=== PATIENT | female | born 1995 | race Caucasian/White ===

== ENCOUNTER 2017-12-12 21:28 | Emergency (ER) | payer OTHER ==
[~2017-12-12] VITALS: Ht 162.6 cm; Wt 77.3 kg
[~2017-12-12 21:28] MED LIST: MOTRIN 800800 MG/TAB PO; NO HOME MEDICATIONS; PERCOCET 325 MG1 TA2 PO; PHENERGAN25 MG RC; TUMS500 MG PO; ZOFRAN ODT4 MG PO
[2017-12-12 21:34] VITALS: TEMP 97.4
[2017-12-12 22:35] LABS: BASO % 0.3 % (0.0-2.0); EOS % 0.1 % (0-4.0); GRAN # 12.1 (1.4-6.5); GRAN % 80.8 % (42.2-75.2); HEMOGLOBIN 12.3 g/dl (12.5-16.0); LYMPH # 1.8 (1.2-3.4); LYMPH % 11.9 % (20.0-51.0); MEAN CELL VOLUME 82 fl (80.0-100.0); MEAN CORPUSCULAR HEMOGLOBIN 28 pg (27.0-31.0); MEAN CORPUSCULAR HGB CONC 35 g/dl (33.0-37.0); MEAN PLATELET VOLUME 10.5 fl (7.4-10.4); MONO % 6.4 % (1.7-9.3); PLATELET COUNT 264 K/mm3 (130-400); RED BLOOD COUNT 4.33 M/mm3 (4.10-5.30); REDCELL DISTRIBUTION WIDTH-CV 13.8 % (11.5-14.5)
[2017-12-12 22:36] LABS: HEMATOCRIT 35.4 % (37.0-47.0)
[2017-12-12 22:47] LABS: ALBUMIN 3.4 gm/dL (3.5-5.0); BILIRUBIN,TOTAL 0.3 mg/dL (0.0-1.0); CREATININE, serum 0.52 mg/dL (0.52-1.25); POTASSIUM 3.1 mmol/L (3.4-5.0); TOTAL PROTEIN 6.8 gm/dL (6.4-8.2)
[2017-12-12 22:49] LABS: COLLECTION METHOD CLEAN CATCH
[2017-12-12 22:51] LABS: C-REACTIVE PROTEIN 2.5 mg/dL (0.0-0.9)
[2017-12-12 23:07] LABS: PH 6 (5-8); URINE APPEARANCE Hazy; URINE BACTERIA Rare /hpf; URINE BILIRUBIN Negative (NEGATIVE); URINE BLOOD 1+ (NEGATIVE); URINE COLOR Yellow; URINE GLUCOSE Negative (NEGATIVE); URINE KETONE Trace (NEGATIVE); URINE LEUKOCYTE ESTERASE 3+ (NEGATIVE); URINE NITRATE Negative (NEGATIVE); URINE PROTEIN(semi-quant) Negative (NEGATIVE); URINE UROBILINOGEN Negative (NEGATIVE)
[2017-12-13 01:29] LABS: COLLECTION METHOD CATHETER
[2017-12-13 01:35] LABS: MUCOUS Present /lpf; PH 6 (5-8); URINE APPEARANCE Clear; URINE BACTERIA None Seen /hpf; URINE BILIRUBIN Negative (NEGATIVE); URINE BLOOD Negative (NEGATIVE); URINE COLOR Yellow; URINE GLUCOSE Negative (NEGATIVE); URINE KETONE Negative (NEGATIVE); URINE LEUKOCYTE ESTERASE Negative (NEGATIVE); URINE NITRATE Negative (NEGATIVE); URINE PROTEIN(semi-quant) Negative (NEGATIVE); URINE RBC 0-2 /hpf
[2017-12-13 02:48] VITALS: BP 118/80
[2017-12-13 03:10] VITALS: PULSE 84
== END 2017-12-13 03:10 | disposition home or self-care (01) ==
LOC: COL.ER 21:28
PROVIDERS: Physician Assistant
DX: O26.892 Other specified pregnancy related conditions, second trimester (principal); O21.9 Vomiting of pregnancy, unspecified; R10.31 Right lower quadrant pain; Z3A.20 20 weeks gestation of pregnancy
CPT/HCPCS: J0696

== ENCOUNTER 2018-04-09 15:41 | Outpatient (CLI) | payer OTHER ==
[~2018-04-09] VITALS: Ht 162.6 cm; Wt 91.4 kg
[2018-04-09 15:56] VITALS: BP 122/7; PULSE 87; TEMP 97.9
[2018-04-09 16:40] VITALS: BP 116/70; PULSE 82
== END 2018-04-09 16:40 | disposition home or self-care (01) ==
LOC: LDRO 15:41
DX: O62.9 Abnormality of forces of labor, unspecified (principal); Z3A.37 37 weeks gestation of pregnancy

== ENCOUNTER 2019-02-25 22:03 | Emergency (ER) | payer OTHER ==
[~2019-02-25] VITALS: Ht 162.6 cm; Wt 79.5 kg
[~2019-02-25 22:03] MED LIST changes: +IBU600 MG PO
[2019-02-25 22:10] VITALS: TEMP 98.5
[2019-02-25 22:41] LABS: COLLECTION METHOD CLEAN CATCH
[2019-02-25 22:44] LABS: BASO % 0.2 % (0.0-2.0); EOS % 0.2 % (0-4.0); GRAN # 11.4 (1.4-6.5); GRAN % 87.8 % (42.2-75.2); HEMATOCRIT 44.7 % (37.0-47.0); HEMOGLOBIN 15.2 g/dl (12.5-16.0); LYMPH # 0.8 (1.2-3.4); LYMPH % 6.5 % (20.0-51.0); MEAN CELL VOLUME 83 fl (80.0-100.0); MEAN CORPUSCULAR HEMOGLOBIN 28 pg (27.0-31.0); MEAN CORPUSCULAR HGB CONC 34 g/dl (33.0-37.0); MEAN PLATELET VOLUME 10.1 fl (7.4-10.4); MONO # 0.6 (0.1-0.6); MONO % 4.8 % (1.7-9.3); PLATELET COUNT 304 K/mm3 (130-400); RED BLOOD COUNT 5.37 M/mm3 (4.10-5.30); REDCELL DISTRIBUTION WIDTH-CV 13.9 % (11.5-14.5)
[2019-02-25 22:53] LABS: MUCOUS Present /lpf; PH 6 (5-8); URINE APPEARANCE Clear; URINE BACTERIA Rare /hpf; URINE BILIRUBIN Negative (NEGATIVE); URINE BLOOD Negative (NEGATIVE); URINE COLOR Yellow; URINE GLUCOSE Negative (NEGATIVE); URINE KETONE 2+ (NEGATIVE); URINE LEUKOCYTE ESTERASE Negative (NEGATIVE); URINE NITRATE Negative (NEGATIVE); URINE PROTEIN(semi-quant) Negative (NEGATIVE); URINE RBC 0-2 /hpf
[2019-02-25 22:55] LABS: ALBUMIN 4.5 gm/dL (3.5-5.0); BILIRUBIN,TOTAL 0.6 mg/dL (0.0-1.0); CALCIUM 9.4 mg/dL (8.4-10.2); CREATININE, serum 0.47 (0.52-1.25); POTASSIUM 3.7 mmol/L (3.4-5.0)
[2019-02-26 02:12] VITALS: BP 110/83; PULSE 92
== END 2019-02-26 02:12 | disposition home or self-care (01) ==
LOC: COL.ER 22:03
PROVIDERS: Emergency Medicine
DX: O26.891 Other specified pregnancy related conditions, first trimester (principal); R10.84 Generalized abdominal pain; Z3A.13 13 weeks gestation of pregnancy
CPT/HCPCS: J2405; J7030

== ENCOUNTER 2019-04-24 19:10 | Emergency (ER) | payer OTHER ==
[~2019-04-24] VITALS: Ht 162.6 cm; Wt 81.8 kg
[2019-04-24 19:17] VITALS: BP 107/68
[2019-04-24 20:04] LABS: COLLECTION METHOD CLEAN CATCH
[2019-04-24 20:33] LABS: MUCOUS Present /lpf; PH 5 (5-8); URINE APPEARANCE Hazy; URINE BACTERIA Rare /hpf; URINE BILIRUBIN Negative (NEGATIVE); URINE BLOOD Negative (NEGATIVE); URINE COLOR Yellow; URINE GLUCOSE Negative (NEGATIVE); URINE KETONE Negative (NEGATIVE); URINE LEUKOCYTE ESTERASE 2+ (NEGATIVE); URINE NITRATE Negative (NEGATIVE); URINE PROTEIN(semi-quant) 1+ (NEGATIVE)
[2019-04-24] MEDS ORDERED: AMOXICILLIN 50500 MG PO (21:39)
[2019-04-24] MEDS ORDERED: ILOTYCIN5 MG/GM OP (21:40)
[2019-04-24 22:00] VITALS: PULSE 99; TEMP 98.6
== END 2019-04-24 22:00 | disposition home or self-care (01) ==
LOC: COL.ER 19:10
PROVIDERS: Nurse Practitioner
DX: O23.92 Unspecified genitourinary tract infection in pregnancy, second trimester (principal); O26.892 Other specified pregnancy related conditions, second trimester; H10.9 Unspecified conjunctivitis; Z3A.22 22 weeks gestation of pregnancy

== ENCOUNTER 2019-06-25 02:14 | Emergency (ER) | payer SELFPAY ==
[~2019-06-25] VITALS: Ht 162.6 cm; Wt 79.5 kg
[~2019-06-25 02:14] MED LIST changes: +AMOXICILLIN 50500 MG PO; +ILOTYCIN5 MG/GM OP
[2019-06-25 02:20] VITALS: BP 129/82; TEMP 98.6
[2019-06-25] MEDS ORDERED: PRENATAL TABLET PO (02:39)
--- NOTE | 2019-06-25 03:00 | NUR ---
0230- RN to ED to do FHR monitoring on patient. 0235- G3 L2. Approximately 30+ weeks . Patient admits to not having any prental care this . Patient states [facility] refuses to see her due to an outstanding balance. Patient has been seen in ED twice this , once at 13 weeks and another at 21 weeks. Patient reports LMP as 10/2018 but is unsure due to . Patient has been seen for pink eye and a UTI during this . Patient being seen in ED for an ear infection currently. Patient reports NKDA and is taking a vitamin daily. 0300- FHR baseline 140's with moderate variability, but no true accels. RN at bedside and can hear movement. Patient reports good movement. Patient denies LOF, bleeding, or spotting. Patient reports N/V prior to ED visit. Encouraged patient to contact [facility] for follow up despite having balance. 0330- Reviewed FHR strip with inspector toolOmar ALEGRE.
[2019-06-25] MEDS ORDERED: AMOXICILLIN 50500 MG PO (03:32)
[2019-06-25] MEDS ORDERED: CIPRODEX OT (03:38)
[2019-06-25 03:56] VITALS: PULSE 72
== END 2019-06-25 03:56 | disposition home or self-care (01) ==
LOC: COL.ER 02:14
DX: H60.501 Unspecified acute noninfective otitis externa, right ear (principal)

== ENCOUNTER 2019-10-19 18:37 | Emergency (ER) | payer MEDICAID ==
[~2019-10-19] VITALS: Ht 162.6 cm; Wt 83.2 kg
[~2019-10-19 18:37] MED LIST changes: +CIPRODEX OT; +IBU800 M1 PO; +PRENATAL TABLET PO
[2019-10-19] MEDS ORDERED: FLOXIN 10 ML10 ML OT (19:37)
[2019-10-19 20:10] VITALS: BP 102/69; PULSE 63; TEMP 97.8
== END 2019-10-19 20:11 | disposition home or self-care (01) ==
LOC: COL.ER 18:37
DX: H60.91 Unspecified otitis externa, right ear (principal)

== ENCOUNTER 2021-03-31 21:17 | Emergency (ER) | payer MEDICAID ==
[~2021-03-31] VITALS: Ht 162.6 cm; Wt 76.8 kg
[~2021-03-31 21:17] MED LIST changes: +FLOXIN 10 ML10 ML OT
[2021-03-31 21:40] VITALS: TEMP 97.2
[2021-03-31] MEDS ORDERED: NAPROSYN500 MG PO (23:12)
[2021-03-31 23:37] VITALS: BP 126/78; PULSE 76
== END 2021-03-31 23:37 | disposition home or self-care (01) ==
LOC: COL.ER 21:17
DX: S83.91XA Sprain of unspecified site of right knee, initial encounter (principal); X50.1XXA Overexertion from prolonged static or awkward postures, initial encounter; Y92.89 Other specified places as the place of occurrence of the external cause

== ENCOUNTER 2021-09-23 21:05 | Emergency (ER) | payer MEDICAID ==
[~2021-09-23] VITALS: Ht 162.6 cm; Wt 79.5 kg
[~2021-09-23 21:05] MED LIST changes: +NAPROSYN500 MG PO
[2021-09-23 21:21] VITALS: TEMP 97.5
[2021-09-23 23:05] VITALS: BP 128/80; PULSE 70
== END 2021-09-23 23:05 | disposition home or self-care (01) ==
LOC: COL.ER 21:05
DX: S06.0X9A Concussion with loss of consciousness of unspecified duration, initial encounter (principal); Z28.310 Unvaccinated for COVID-19; W01.198A Fall on same level from slipping, tripping and stumbling with subsequent striking against other object, initial encounter